=== PATIENT | female | born 1975 ===

== ENCOUNTER 2016-07-26 10:41 | Outpatient (CLI) | payer BC ==
--- NOTE | 2016-07-26 12:48 | Mammography Report ---
BILATERAL DIGITAL DIAGNOSTIC MAMMOGRAM with CAD: 07/26/16 10:41:00 CLINICAL: Right breast lump for 2-3 years and history of a cyst. COMPARISON:None available. However, a prior mammogram was apparently done in [place]. FINDINGS: The breasts are heterogeneously dense, which may obscure small masses. A partially circumscribed right focal nodular asymmetry requires comparison with the prior mammogram. In No architectural distortion or suspicious calcifications.The left breast is negative. IMPRESSION: Right asymmetry requiring further evaluation. BI-RADS CATEGORY: 0 -- Additional Evaluation Required RECOMMENDATION: Comparison with a previous mammogram. We will attempt to obtain a prior mammogram from [place], [place]. If we do not obtain a prior mammogram for comparison within 30 days, a revised report will be issued recommending a recall for additional imaging of the right breast. Please be advised that the patient should not schedule an appointment for return until adequate time ( t least 2 weeks) has passed for us to obtain the prior mammogram. ACR BI-RADS MAMMOGRAPHIC CODES: 0 = Needs additional imaging evaluation; 1 = Negative; 2 = Benign; 3 = Probably benign; 4 = Suspicious; 5 = Malignant; 6 = Known biopsy-proven malignancy COMMENT: 1. Dense breast tissue, i.e., adenosis, fibrocystic changes, etc., may obscure an underlying neoplasm. 2. Approximately 10% of cancers are not detected with mammography. 3. A negative mammography report should not delay biopsy if a clinically suspicious mass is present. COMMENT: Patient follow-up letters are generated via our [employer] application.
== END 2016-07-26 10:42 | disposition home or self-care (01) ==
LOC: SPVWC 10:41
PROVIDERS: ATTEND Internal Medicine
DX: N63 Unspecified lump in breast (principal); Z85.3 Personal history of malignant neoplasm of breast
CPT/HCPCS: 77066; G0204

== ENCOUNTER 2016-08-31 08:43 | Outpatient (CLI) | payer BC ==
--- NOTE | 2016-08-31 09:52 | Mammography Report ---
Diagnostic right mammogram and targeted right breast ultrasound. History: Recall for right breast mass. Findings: Spot compression images and a 90 degree mediolateral view to confirm the presence of a round mass at approximately 9:00, 3 cm from the nipple. The breast parenchyma is heterogeneously dense. No suspicious calcifications are seen. Targeted ultrasound demonstrates an ovoid shaped sonolucent mass at the 9:30 position 3 cm from nipple measuring 1.0 x 0.6 x 1.0 cm. This corresponds in size and location to the mammographic finding. Impression: 1 cm cyst in the right breast. BI-RADS: 2. Recommendation: Annual screening.
== END 2016-08-31 08:44 | disposition home or self-care (01) ==
LOC: SPVWC 08:43
PROVIDERS: ATTEND Internal Medicine
DX: N60.01 Solitary cyst of right breast (principal); N63 Unspecified lump in breast
CPT/HCPCS: 76642; G0206